=== PATIENT | male | born 1985 | race Two or more races ===

== ENCOUNTER 2021-06-13 06:43 | Emergency (ER) | payer OTHER ==
[~2021-06-13] VITALS: Ht 157.5 cm; Wt 77.1 kg
[2021-06-13 08:02] VITALS: BP 142/83
== END 2021-06-13 09:38 | disposition home or self-care (01) ==
LOC: ER 06:43 → EDBD 06:43 → ER 09:38
DX: S16.1XXA Strain of muscle, fascia and tendon at neck level, initial encounter (principal); M79.10 Myalgia, unspecified site; V43.62XA Car passenger injured in collision with other type car in traffic accident, initial encounter; Y93.89 Activity, other specified; Y92.410 Unspecified street and highway as the place of occurrence of the external cause; Y99.8 Other external cause status
CPT/HCPCS: 70450; 71045; 72125; 74176